=== PATIENT | female | born 1990 | race Caucasian/White ===

== ENCOUNTER 2017-01-25 14:00 | Observation (INO) | payer OTHER ==
--- NOTE | 2017-01-25 14:57 | ED.ABDFE ---
HPI - Time seen Time seen: 14:53 - PCP Primary Care Physician: DR. REED - Complaint Chief Complaint Doctors Comments: Patient admits to N/V for two days of last week, vomiting stopped then started with severe abdominal pain past 4-5 days but worse. She denies fever. Patient aslo complained of migraine headache. Headache treated in the past with imitrex. She now uses OTC medication as needed for headache Chief Complaint:: PT C/O ABD PAIN AND THE WORSE MIGRAINE SHE HAS EVER HAD.. AND SHE CANT'T STOP THROWING UP . - Source History Provided: Patient - Mode of arrival Mode of Arrival: Ambulatory - Timing Onset of Chief Complaint: 01/19/17 PMH - PMH Past Medical History: No Past Surgical History: Yes Surgical History: Tonsillectomy Past Surgical History Comment: TUBAL . - Family History History of Family Medical Conditions: No - Social History Does patient currently use any type of tobacco product: Yes Have you used tobacco products in the last 12 months: Yes Type of Tobacco Use: Cigarettes How many years tobacco product used: 8 Does any household member use tobacco: No Alcohol Use: None Do you use any recreational Drugs:: No Lives With: Family Lives Where: Assisted Care - infectious screening In the last 2 months have you had wt loss of >10#?: NO Have you had fever, night sweats or hemotysis?: No Have you traveled outside the country in the last 6 months?: No Isolation: Standard ROS - Review of Systems Eyes: No Symptoms Reported ENTM: No Symptoms Reported Respiratoy: No Symptoms Reported Cardiovascular: No Symptoms Reported Gastrointestinal/Abdominal: No Symptoms Reported Genitourinary: No Symptoms Reported Neurological: See HPI, Headache Musculoskeletal: No Symptoms Reported Integumentary: No Symptoms Reported Hematologic/Lymphatic: No Symptoms Reported Endocrine: No Symptoms Reported Psychiatric: No Symptoms Reported All Other Systems: Reviewed and Negative PE - Vital Signs Vitals: Temperature 98.2 F Pulse Rate 87 Respiratory Rate 18 Blood Pressure 123/80 O2 Sat by Pulse Oximetry 95 - General Limitations: No Limitations General Appearance: Alert, In No Apparent Distress - Head Head Exam: Normal Inspection, Atraumatic - Eyes Eye exam: Normal Appearance, PERRL, EOMI - ENT ENT Exam: Normal Exam, Mucous Membranes Dry - Neck Neck Exam: Normal Inspection, Full ROM, Trachea Midline - Chest Chest Inspection: Normal Inspection - Respiratory Respiratory Exam: Normal Lung Sounds Bilat Respiratory Exam: Bilateral Clear to Auscultation - Cardiovascular Cardiovascular Exam: Regular Rate, Normal Rhythm - Abdominal Exam Abdominal Exam: Normal Inspection, Distention, Tenderness, Dimnished Bowel Sounds Abdominal Tenderness: negative: RUQ, RLQ, LUQ, LLQ, Epigastrium, Suprapubic, Diffuse, Mild, Moderate, Severe, Other - Rectal Rectal Exam: Deferred - Back Back Exam: Normal Inspection - Extremeties Extremities Exam: Normal Inspection, Full ROM - : Speculum Exam (Female): Deferred : Bimanual Exam (female): Deferred - Neurologic Neurological Exam: Alert, Oriented X3, CN II-XII Intact - Psychiatric Psychiatric Exam: Normal Affect, Normal Mood - Skin Skin Exam: Warm, Dry, Intact Course - Reevaluation 1st: Improved - Consultation Called: 16:30 (Dr Beltran agreed to admit for further treatment) ROR - Labs Reviewed Laboratory Results Reviewed?: Yes (Lipase 1712) Result Diagrams: 01/25/17 15:18 01/25/17 15:18 Laboratory: WBC 12.2 X10^3/uL (3.6-10.0) H 01/25/17 15:18 RBC 4.63 X10^6/uL (3.5-5.4) 01/25/17 15:18 Hgb 13.5 g/dL (12.0-16.0) 01/25/17 15:18 Hct 39.8 % (36.0-47.0) 01/25/17 15:18 MCV 86.0 fL (80.0-100.0) 01/25/17 15:18 MCH 29.2 pg (27.0-34.0) 01/25/17 15:18 MCHC 34.0 g/dL (33.0-35.0) 01/25/17 15:18 RDW 13.0 % (11.6-16.5) 01/25/17 15:18 Plt Count 191 X10^3/uL (150.0-450.0) 01/25/17 15:18 MPV 9.3 fL (7.4-11.0) 01/25/17 15:18 Neut % 63.8 % (42.0-75.0) 01/25/17 15:18 Lymph % 25.3 % (21.0-51.0) 01/25/17 15:18 [place] % 7.2 % (0.0-13.0) 01/25/17 15:18 Eos % 3.2 % (0.9-2.9) H 01/25/17 15:18 Baso % 0.5 % (0.2-1.0) 01/25/17 15:18 Neut # 7.8 x10^3/uL (2.2-4.8) H 01/25/17 15:18 Lymph # 3.1 X10^3/uL (1.3-2.9) H 01/25/17 15:18 [place] # 0.9 x10^3/uL (0.3-0.8) H 01/25/17 15:18 Eos # 0.4 x10^3/uL (0.0-0.2) H 01/25/17 15:18 Baso # 0.1 X10^3/uL (0.0-0.1) 01/25/17 15:18 Absolute Nucleated RBC 0.3 /100WBC 01/25/17 15:18 Sodium 141 mmol/L (136-145) 01/25/17 15:18 Corrected Sodium TNP 01/25/17 15:18 Potassium 4.2 mmol/L (3.5-5.1) 01/25/17 15:18 Chloride 105 mmol/L (98-107) 01/25/17 15:18 Carbon Dioxide 28.6 mmol/L (21-32) 01/25/17 15:18 BUN 8 mg/dL (7-18) 01/25/17 15:18 Creatinine 0.75 mg/dL (0.55-1.02) 01/25/17 15:18 Est GFR (MDRD) Af Amer > 60 (>60) 01/25/17 15:18 Est GFR (MDRD) Non-Af > 60 (>60) 01/25/17 15:18 Glucose 96 mg/dL (65-99) 01/25/17 15:18 Calcium 8.9 mg/dL (8.5-10.1) 01/25/17 15:18 Corrected Calcium TNP 01/25/17 15:18 Total Bilirubin 0.10 mg/dL (0.2-1.0) L 01/25/17 15:18 AST 16 Units/L (15-37) 01/25/17 15:18 ALT 19 Units/L (12-78) 01/25/17 15:18 Alkaline Phosphatase 62 Units/L (46-116) 01/25/17 15:18 C-Reactive Protein 3.10 mg/L (0-3.0) H 01/25/17 15:18 Total Protein 7.2 g/dL (6.4-8.2) 01/25/17 15:18 Albumin 3.5 g/dL (3.4-5.0) 01/25/17 15:18 Globulin 3.7 g/dL (2.5-4.5) 01/25/17 15:18 Albumin/Globulin Ratio 0.9 Ratio (1.1-2.1) L 01/25/17 15:18 Amylase 205 Units/L (25-115) H 01/25/17 15:18 Lipase 1712 Units/L (73-393) H 01/25/17 15:18 - Diagnosis Discharge Problem: Acute pancreatitis Qualifiers: Pancreatitis type: unspecified pancreatitis type Acute pancreatitis complication: unspecified Qualified Code(s): K85.90 - Acute pancreatitis without necrosis or infection, unspecified - Discharge Plan Condition: Stable - Follow ups/Referrals Follow ups/Referrals: GAVI REED [Primary Care Provider] - 3 days - Instructions
[2017-01-25] MEDS ORDERED: ZOFRAN INJ 4 MG VIAL IVP ONE (14:58)
[2017-01-25] MEDS ORDERED: TORADOL 30 MG VIAL IVP ONE (14:58)
[2017-01-25] MEDS ORDERED: NS 1000 ML 1,000 ML IV SCH ×2 (15:00→17:00)
[2017-01-25] MEDS ORDERED: TORADOL 30 MG VIAL ONE (15:11)
[2017-01-25] MEDS ORDERED: ZOFRAN INJ 4 MG VIAL ONE (15:11)
[2017-01-25 15:35] LABS: BASOPHILS # (AUTO) 0.1 X10^3/uL (0.0-0.1); BASOPHILS % (AUTO) 0.5 % (0.2-1.0); EOSINOPHILS # (AUTO) 0.4 x10^3/uL (0.0-0.2); EOSINOPHILS % (AUTO) 3.2 % (0.9-2.9); HEMATOCRIT 39.8 % (36.0-47.0); HEMOGLOBIN 13.5 g/dL (12.0-16.0); LYMPHOCYTES # (AUTO) 3.1 X10^3/uL (1.3-2.9); LYMPHOCYTES % (AUTO) 25.3 % (21.0-51.0); MEAN CORPUSCULAR HEMOGLOBIN 29.2 pg (27.0-34.0); MEAN PLATELET VOLUME 9.3 fL (7.4-11.0); MONOCYTES # (AUTO) 0.9 x10^3/uL (0.3-0.8); MONOCYTES % (AUTO) 7.2 % (0.0-13.0); NEUTROPHILS # (AUTO) 7.8 x10^3/uL (2.2-4.8); NEUTROPHILS % (AUTO) 63.8 % (42.0-75.0); PLATELET COUNT 191 X10^3/uL (150.0-450.0); RED BLOOD COUNT 4.63 X10^6/uL (3.5-5.4); WHITE BLOOD COUNT 12.2 X10^3/uL (3.6-10.0)
[2017-01-25 15:39] LABS: ALANINE AMINOTRANSFERASE 19 Units/L (12-78); ALBUMIN 3.5 g/dL (3.4-5.0); ALKALINE PHOSPHATASE 62 Units/L (46-116); AMYLASE 205 Units/L (25-115); ASPARTATE AMINO TRANSFERASE 16 Units/L (15-37); BLOOD UREA NITROGEN 8 mg/dL (7-18); CALCIUM 8.9 mg/dL (8.5-10.1); CARBON DIOXIDE 28.6 mmol/L (21-32); CHLORIDE 105 mmol/L (98-107); CREATININE 0.75 mg/dL (0.55-1.02); SODIUM 141 mmol/L (136-145); TOTAL PROTEIN 7.2 g/dL (6.4-8.2); eGFR BLACK RACES > 60 (>60); eGFR NON BLACK RACES > 60 (>60)
[2017-01-25 15:40] LABS: LIPASE 1712 Units/L (73-393)
[2017-01-25 16:34] LABS: BILIRUBIN,URINE NEGATIVE (NEGATIVE); BLOOD/HEMOGLOBIN,URINE NEGATIVE (NEGATIVE); GLUCOSE, URINE NEGATIVE (NEGATIVE); KETONES,URINE NEGATIVE (NEGATIVE); LEUKOCYTE ESTERASE ,URINE 1+ (NEGATIVE); NITRITES,URINE NEGATIVE (NEGATIVE); PROTEIN,URINE NEGATIVE (NEGATIVE); UROBILINOGEN,URINE NORMAL (NORMAL)
[2017-01-25 16:45] LABS: AMORPHOUS SEDIMENT,UR TRACE /HPF (NEGATIVE); APPEARANCE,URINE CLEAR (CLEAR); BACTERIA,URINE 1+ /HPF (NEGATIVE); COLOR,URINE YELLOW (YELLOW); MUCUS,URINE MANY /HPF (NEGATIVE); RBC,URINE 0-2 /HPF (NEGATIVE); SQUAMOUS EPITHELIAL CELL,UR FEW /HPF (NEGATIVE)
[2017-01-25] MEDS ORDERED: DEMEROL INJ IM PRN (17:01)
--- NOTE | 2017-01-25 18:21 | CT ---
HISTORY: Acute pancreatitis Study: CT abdomen without contrast Comparison: None Technique: Multiple axial images of the abdomen were obtained without IV contrast. Oral contrast was not admini stered. Dose reduction techniques including Automated Exposure Control (AEC) and adjustment of mA and kV were utilized. Findings: The visualized portions of the lung bases are unremarkable. The liver, spleen, pancreas, kidneys, an d adrenal glands are unremarkable in their CT appearance. The gallbladder is normal. No fluid or stra nding is seen around the pancreas. No free intraperitoneal air. No evidence of intestinal obstruction or inflammation. The appendix norm al. No ascites is visualized. The soft tissues and osseous structures are unremarkable. The vascular structures are unremarkable. N o pathologically enlarged lymph nodes are identified. The pelvis was not imaged. IMPRESSION: 1. Negative noncontrast CT of the abdomen. Reported By:
[2017-01-25 18:32] VITALS: BMI 27.3
[2017-01-25] MEDS: ANCEF IV SCH ×2 (18:56→23:26)
[2017-01-25] MEDS: NS IV SCH ×2 (18:56→23:26)
[2017-01-25] MEDS: MILK OF MAGNESIA PO SCH ×3 (22:27→22:30)
[2017-01-25] MEDS: COLACE CAP 100 MG PO SCH ×4 (22:27→22:30)
[2017-01-25] MEDS ORDERED: ANCEF VIAL 1 GM ONE (23:06)
[2017-01-25] MEDS ORDERED: NS 50 ML IV 50 ML IV ONE (23:07)
[2017-01-26 05:27] LABS: BASOPHILS # (AUTO) 0.1 X10^3/uL (0.0-0.1); BASOPHILS % (AUTO) 0.6 % (0.2-1.0); EOSINOPHILS # (AUTO) 0.4 x10^3/uL (0.0-0.2); EOSINOPHILS % (AUTO) 4.4 % (0.9-2.9); HEMOGLOBIN 12.4 g/dL (12.0-16.0); LYMPHOCYTES # (AUTO) 3.8 X10^3/uL (1.3-2.9); LYMPHOCYTES % (AUTO) 37.7 % (21.0-51.0); MEAN CORPUSCULAR HEMOGLOBIN 29.4 pg (27.0-34.0); MEAN CORPUSCULAR HGB CONC 34.4 g/dL (33.0-35.0); MEAN CORPUSCULAR VOLUME 85.5 fL (80.0-100.0); MEAN PLATELET VOLUME 10.1 fL (7.4-11.0); MONOCYTES # (AUTO) 0.9 x10^3/uL (0.3-0.8); MONOCYTES % (AUTO) 8.9 % (0.0-13.0); NEUTROPHILS # (AUTO) 4.9 x10^3/uL (2.2-4.8); NEUTROPHILS % (AUTO) 48.4 % (42.0-75.0); PLATELET COUNT 187 X10^3/uL (150.0-450.0); RED BLOOD COUNT 4.22 X10^6/uL (3.5-5.4); WHITE BLOOD COUNT 10.1 X10^3/uL (3.6-10.0)
[2017-01-26 05:37] LABS: ALANINE AMINOTRANSFERASE 16 Units/L (12-78); ALBUMIN 3.1 g/dL (3.4-5.0); ALKALINE PHOSPHATASE 52 Units/L (46-116); ASPARTATE AMINO TRANSFERASE 14 Units/L (15-37); BLOOD UREA NITROGEN 6 mg/dL (7-18); CALCIUM 8.4 mg/dL (8.5-10.1); CARBON DIOXIDE 29.4 mmol/L (21-32); CHLORIDE 108 mmol/L (98-107); COR CA(FOR HYPOALB) 9.1 mg/dL (8.5-10.1); SODIUM 143 mmol/L (136-145); TOTAL PROTEIN 6.2 g/dL (6.4-8.2); eGFR BLACK RACES > 60 (>60); eGFR NON BLACK RACES > 60 (>60)
[2017-01-26] MEDS ORDERED: ANCEF VIAL 1 GM ONE (05:41)
[2017-01-26] MEDS ORDERED: NS 25 ML IV 25 ML IV ONE (05:51)
[2017-01-26 05:55] LABS: AMYLASE 64 Units/L (25-115); LIPASE 178 Units/L (73-393)
[2017-01-26] MEDS: NS IV SCH (05:56)
[2017-01-26] MEDS: ANCEF IV SCH (05:56)
[2017-01-26 08:35] VITALS: BP 120/78
[2017-01-26] MEDS: MILK OF MAGNESIA PO SCH (09:51)
[2017-01-26] MEDS ORDERED: CITROMA PO ONE (09:53)
== END 2017-01-26 11:50 | disposition home or self-care (01) ==
LOC: ER 14:22 → INTOOBSV 16:48 → MED/SURG 16:48
PROVIDERS: ADMIT Obstetrics & Gynecology Obstetrics; ATTEND Obstetrics & Gynecology Obstetrics
DX: K85.80 Other acute pancreatitis without necrosis or infection (principal); R11.2 Nausea with vomiting, unspecified; D72.828 Other elevated white blood cell count
CPT/HCPCS: 36415; 74150; 80053; 81001; 82150; 83690; 85025; 86140; 94760; 96365; 96367; 96374; 96375; 99284; A4216; A4222; G0378; J0690; J1885; J2405